=== PATIENT | female | born 1950 | race Native Hawaiian/Other Pacific Islander ===

== ENCOUNTER 2020-08-14 09:49 | Outpatient (CLI) | payer OTHER ==
[2020-08-14 11:12] LABS: PLATELET COUNT 279 K/uL (152-353)
[2020-08-14 11:24] LABS: POTASSIUM 4.4 mmol/L (3.6-5.2)
== END 2020-08-14 21:11 | disposition home or self-care (01) ==
LOC: US 09:49
PROVIDERS: ATTEND Student in an Organized Health Care Education/Training Program
DX: N18.4 Chronic kidney disease, stage 4 (severe) (principal); Z79.899 Other long term (current) drug therapy
CPT/HCPCS: 36415; 80053; 80074; 81000; 82043; 82306; 82330; 82570; 82784; 83036; 83735; 83970; 84100; 84155; 84165; 85027; 86038; 86160; 86430; 86592; 87535; 89050; G0432

== ENCOUNTER 2020-10-13 10:29 | Outpatient (CLI) | payer OTHER ==
[2020-10-13 10:57] LABS: PLATELET COUNT 256 K/uL (152-353)
[2020-10-13 11:05] LABS: POTASSIUM 4.8 mmol/L (3.6-5.2)
== END 2020-10-13 19:21 | disposition home or self-care (01) ==
LOC: LABW 10:29
PROVIDERS: ATTEND Student in an Organized Health Care Education/Training Program
DX: N18.30 Chronic kidney disease, stage 3 unspecified (principal); Z79.899 Other long term (current) drug therapy
CPT/HCPCS: 36415; 80053; 81000; 82043; 82306; 82330; 82570; 83036; 83735; 83970; 84100; 84155; 85027

== ENCOUNTER 2020-12-17 11:12 | Outpatient (CLI) | payer OTHER ==
[2020-12-17 13:29] LABS: POTASSIUM 4.4 mmol/L (3.6-5.2)
== END 2020-12-17 21:02 | disposition home or self-care (01) ==
LOC: LABW 11:12
PROVIDERS: ATTEND Student in an Organized Health Care Education/Training Program
DX: N18.4 Chronic kidney disease, stage 4 (severe) (principal); E11.9 Type 2 diabetes mellitus without complications
CPT/HCPCS: 36415; 80053; 81000; 82306; 82570; 83036; 83970; 84155; 86430

== ENCOUNTER 2021-01-13 10:09 | Outpatient (CLI) | payer OTHER ==
[2021-01-13 11:05] LABS: PLATELET COUNT 260 K/uL (152-353)
[2021-01-13 11:34] LABS: POTASSIUM 4.4 mmol/L (3.6-5.2)
== END 2021-01-13 22:42 | disposition home or self-care (01) ==
LOC: LABW 10:09
PROVIDERS: ATTEND Student in an Organized Health Care Education/Training Program
DX: I12.9 Hypertensive chronic kidney disease with stage 1 through stage 4 chronic kidney disease, or unspecified chronic kidney disease (principal); N18.4 Chronic kidney disease, stage 4 (severe); E11.9 Type 2 diabetes mellitus without complications; D63.1 Anemia in chronic kidney disease; E26.1 Secondary hyperaldosteronism; E78.2 Mixed hyperlipidemia
CPT/HCPCS: 36415; 80053; 81000; 82570; 83036; 84100; 84155; 85027